=== PATIENT | male | born 1970 | race Caucasian/White ===

== ENCOUNTER 2021-01-25 18:05 | Emergency (ER) | payer BC ==
[~2021-01-25] VITALS: Ht 172.7 cm; Wt 97.7 kg
[2021-01-25 18:11] VITALS: Ht 172.7 cm; Wt 97.7 kg
[2021-01-25 19:01] LABS: BASOPHILS 0.7 % (0-2); EOSINOPHILS 3.6 % (0-7); HEMATOCRIT 40.3 % (42.0-54.0); HEMOGLOBIN 13.9 g/dL (13.5-17.5); LYMPHOCYTES 28.9 % (15-50); MCH 31.6 pg (26.0-34.0); MCHC 34.5 g/dL (31.0-37.0); MCV 91.5 fL (80.0-100.0); MEAN PLATELET VOLUME 6.7 fL (7.4-10.4); MONOCYTES 7.1 % (2-11); NEUTROPHILS 59.7 % (40-80); PLATELET COUNT 246 10x3/uL (130-400); RBC 4.41 10x6/uL (4.20-6.10); RDW 12.4 % (11.5-14.5); WBC 4.3 10x3/uL (4.8-10.8)
[2021-01-25 19:05] LABS: INR 1.15 (0.85-1.17); PROTIME 13.6 SECONDS (11.6-15.0)
[2021-01-25] MEDS ORDERED: CATAPRES TTS-10.1 MG TD (19:45)
[2021-01-25 20:57] VITALS: BP 125/89
== END 2021-01-25 20:54 | disposition home or self-care (01) ==
LOC: D.ER 18:05
PROVIDERS: Emergency Medicine
DX: I82.411 Acute embolism and thrombosis of right femoral vein (principal); I10 Essential (primary) hypertension; M79.604 Pain in right leg